=== PATIENT | male | born 1975 | race Caucasian/White ===

== ENCOUNTER 2018-04-05 14:14 | Emergency (ER) | payer OTHER ==
[~2018-04-05] VITALS: Ht 185.4 cm; Wt 122.1 kg
[2018-04-05] MEDS ORDERED: MOTRIN600 MG PO (15:20)
[2018-04-05] MEDS ORDERED: PERCOCET 5/31 TABLET PO (15:20)
[2018-04-05 16:19] VITALS: BP 116/70
== END 2018-04-05 16:24 | disposition home or self-care (01) ==
LOC: EME 14:14
DX: T23.222A Burn of second degree of single left finger (nail) except thumb, initial encounter (principal); T31.0 Burns involving less than 10% of body surface; X12.XXXA Contact with other hot fluids, initial encounter; Y99.0 Civilian activity done for income or pay
CPT/HCPCS: 99281; 99283